=== PATIENT | female | born 1975 | race Caucasian/White ===

== ENCOUNTER → 2017-02-16 | Outpatient (CLI) | payer BC ==
[2006-07-14 08:32] VITALS: TEMP 97.5
== END ==
LOC: MC.RAD 08:00
DX: N63 Unspecified lump in breast (principal)

== ENCOUNTER → 2021-09-04 | Outpatient (CLI) | payer BC ==
[2006-07-14 08:32] VITALS: TEMP 97.5
== END ==
LOC: MC.RAD 09:43
DX: Z12.31 Encounter for screening mammogram for malignant neoplasm of breast (principal)